=== PATIENT | male | born 1955 | race Caucasian/White ===

== ENCOUNTER 2016-11-10 13:48 | Inpatient (IN) | payer MEDICAID ==
[~2016-11-10] VITALS: Ht 182.9 cm; Wt 62.2 kg
[2016-11-10] VITALS (374 sets, daily range): BP systolic 156–175; BP diastolic 96–111; PULSE 85–101; TEMP 98.4–98.8; O2SAT 71–100
[~2016-11-10 13:48] MED LIST: AMBIEN 10MG10 MG PO; GABAPENTIN300 M1 PO; LAMICTAL 25MG T25 MG PO; LIORESAL20 MG PO; LORTAB 10/500 51 TAB PO; NO HOME MEDICATIONS; PRILOSEC10 MG PO; VALIUM5 MG PO; VICODIN PO; XANAX .25M0.25 MG/TA PO; ZANAFLEX2 M1 PO
[2016-11-10 14:28] LABS: BASO % 0.3 % (0.0-2.0); EOS # 0.1 (0.0-0.7); EOS % 0.5 % (0-4.0); GRAN # 4.3 (1.4-6.5); GRAN % 45.9 % (42.2-75.2); HEMATOCRIT 37.1 % (42.0-52.0); HEMOGLOBIN 13.4 g/dl (13.5-18.0); LYMPH # 3.6 (1.2-3.4); LYMPH % 37.8 % (20.0-51.0); MEAN CELL VOLUME 95 fl (80.0-100.0); MEAN CORPUSCULAR HEMOGLOBIN 34 pg (27.0-31.0); MEAN CORPUSCULAR HGB CONC 36 g/dl (33.0-37.0); MEAN PLATELET VOLUME 10.2 fl (7.4-10.4); MONO # 1.5 (0.1-0.6); MONO % 15.3 % (1.7-9.3); PLATELET COUNT 187 K/mm3 (130-400); RED BLOOD COUNT 3.91 M/mm3 (4.20-5.60); REDCELL DISTRIBUTION WIDTH-CV 11.9 % (11.5-14.5); WHITE BLOOD COUNT 9.5 K/mm3 (4.8-10.8)
[2016-11-10 14:32] LABS: INR 1.1 (0.8-3.0); PROTHROMBIN TIME 11.8 SECONDS (9.7-12.8)
[2016-11-10 14:35] LABS: PH 5 (5-8); SQUAMOUS EPITHELIAL None Seen /hpf; URINE APPEARANCE Clear; URINE BACTERIA None Seen /hpf; URINE BILIRUBIN Negative (NEGATIVE); URINE BLOOD Negative (NEGATIVE); URINE COLOR Yellow; URINE GLUCOSE Negative (NEGATIVE); URINE KETONE Trace (NEGATIVE); URINE RBC 0-2 /hpf; URINE UROBILINOGEN Negative (NEGATIVE); URINE WBC 0-2 /hpf
[2016-11-10 14:58] LABS: ADJUSTED CALCIUM 9.2 mg/dL (8.4-10.2); ALANINE AMINOTRANSFERASE 89 U/L (21-72); ALBUMIN 4.1 gm/dL (3.5-5.0); ALKALINE PHOSPHATASE 99 U/L (50-136); ANION GAP 10 mmol/L (7-16); BILIRUBIN,TOTAL 2.3 mg/dL (0.0-1.0); BLOOD UREA NITROGEN 11 mg/dL (9-20); CALCIUM 9.3 mg/dL (8.4-10.2); CARBON DIOXIDE 25 mmol/L (22-30); CHLORIDE 96 mmol/L (98-107); CREATININE, serum 0.79 mg/dL (0.66-1.25); GLUCOSE 85 mg/dL (74-106); SODIUM 131 mmol/L (137-145); TOTAL PROTEIN 7.9 gm/dL (6.4-8.2)
[2016-11-10 15:04] LABS: ACETAMINOPHEN < 10 ug/mL (10-30); AMPHETAMINE URINE NEGATIVE; BARBITURATES URINE NEGATIVE; BENZODIAZEPINES URINE POSITIVE; BUPRENORPHINE URINE NEGATIVE; METHADONE URINE NEGATIVE; OPIATES URINE POSITIVE; OXYCODONE URINE NEGATIVE; PHENCYCLIDINE URINE NEGATIVE; PROPOXYPHENE URINE NEGATIVE; SALICYLATE < 1.0 mg/dL; THC CANNABINOIDS URINE NEGATIVE
[2016-11-10 15:10] LABS: ARTERIAL BLD GAS O2 SATURATION 95.6 % (92-100); ARTERIAL BLD GAS TCO2 CT 24.1; ARTERIAL BLOOD GAS BASE EXCESS -2.1 (-2-2); ARTERIAL BLOOD GAS HCO3 22.9 meq/L (22-26); ARTERIAL BLOOD GAS PHT 7.37 C (7.35-7.45); ARTERIAL BLOOD GAS PO2 81.6 mmHg (80-100); ARTERIAL BLOOD GAS PO2T 81.6 (80-100); ARTERIAL BLOOD GAS pH 7.37 (7.35-7.45)
[2016-11-10 15:11] LABS: ATS? YES
[2016-11-10 15:41] LABS: INFLUENZA B NEGATIVE
[2016-11-10 15:52] LABS: PROLACTIN 36.5 ng/mL (3.7-17.9)
[2016-11-10 16:43] LABS: TROPONIN-I < 0.012 ng/mL (0.000-0.034)
[2016-11-10 16:53] LABS: MAGNESIUM 1.9 mg/dL (1.6-2.3); PHOSPHOROUS 4.2 mg/dL (2.5-4.5)
[2016-11-10 17:52] LABS: THYROID STIMULATING HORMONE 0.952 uIU/mL (0.465-4.680)
[2016-11-11] VITALS (1110 sets, daily range): BP systolic 143–178; BP diastolic 77–111; PULSE 78–101; TEMP 96.7–99.1; O2SAT 72–100
[2016-11-11 05:45] LABS: HEMATOCRIT 40.6 % (42.0-52.0); HEMOGLOBIN 14.3 g/dl (13.5-18.0); MEAN CELL VOLUME 97 fl (80.0-100.0); MEAN CORPUSCULAR HEMOGLOBIN 34 pg (27.0-31.0); MEAN CORPUSCULAR HGB CONC 35 g/dl (33.0-37.0); PLATELET COUNT 197 K/mm3 (130-400); RED BLOOD COUNT 4.17 M/mm3 (4.20-5.60); REDCELL DISTRIBUTION WIDTH-CV 12.1 % (11.5-14.5); WHITE BLOOD COUNT 9.6 K/mm3 (4.8-10.8)
[2016-11-11 05:56] LABS: ADJUSTED CALCIUM 8.6 mg/dL (8.4-10.2); BILIRUBIN,TOTAL 2.1 mg/dL (0.0-1.0); CALCIUM 8.6 mg/dL (8.4-10.2); CREATININE, serum 0.61 mg/dL (0.66-1.25); POTASSIUM 3.9 mmol/L (3.4-5.0); TOTAL PROTEIN 7.5 gm/dL (6.4-8.2)
[2016-11-11 14:16] LABS: THYROID STIMULATING HORMONE 0.722 uIU/mL (0.465-4.680)
[2016-11-11 14:43] LABS: THYROXINE (T4)-TOTAL 14.8 ug/dL (5.5-11.0)
[2016-11-12] VITALS (62 sets, daily range): BP systolic 126–199; BP diastolic 57–96; PULSE 78–96; TEMP 97.6–98.8; O2SAT 96–99
[2016-11-12 05:29] LABS: HEMOGLOBIN 12.9 g/dl (13.5-18.0); MEAN CELL VOLUME 96 fl (80.0-100.0); MEAN CORPUSCULAR HEMOGLOBIN 34 pg (27.0-31.0); MEAN CORPUSCULAR HGB CONC 36 g/dl (33.0-37.0); MEAN PLATELET VOLUME 9.8 fl (7.4-10.4); PLATELET COUNT 176 K/mm3 (130-400); RED BLOOD COUNT 3.77 M/mm3 (4.20-5.60); WHITE BLOOD COUNT 9.5 K/mm3 (4.8-10.8)
[2016-11-12 05:40] LABS: CALCIUM 8.4 mg/dL (8.4-10.2); CREATININE, serum 0.55 mg/dL (0.66-1.25); MAGNESIUM 1.8 mg/dL (1.6-2.3); PHOSPHOROUS 2.7 mg/dL (2.5-4.5); POTASSIUM 3.8 mmol/L (3.4-5.0)
[2016-11-12 06:32] LABS: HEMATOCRIT 36.1 % (42.0-52.0)
[2016-11-13] VITALS (9 sets, daily range): BP systolic 109–157; BP diastolic 62–84; PULSE 80–93; TEMP 97.5–99.4
[2016-11-13 08:26] LABS: HEMATOCRIT 36.6 % (42.0-52.0); HEMOGLOBIN 13.6 g/dl (13.5-18.0); MEAN CELL VOLUME 93 fl (80.0-100.0); MEAN CORPUSCULAR HEMOGLOBIN 34 pg (27.0-31.0); MEAN CORPUSCULAR HGB CONC 37 g/dl (33.0-37.0); MEAN PLATELET VOLUME 9.9 fl (7.4-10.4); PLATELET COUNT 176 K/mm3 (130-400); RED BLOOD COUNT 3.95 M/mm3 (4.20-5.60); REDCELL DISTRIBUTION WIDTH-CV 11.5 % (11.5-14.5); WHITE BLOOD COUNT 8.9 K/mm3 (4.8-10.8)
[2016-11-13 08:44] LABS: CALCIUM 8.8 mg/dL (8.4-10.2); CREATININE, serum 0.54 mg/dL (0.66-1.25); POTASSIUM 3.5 mmol/L (3.4-5.0)
[2016-11-13 13:08] LABS: CALCIUM 8.9 mg/dL (8.4-10.2); CREATININE, serum 0.66 mg/dL (0.66-1.25); POTASSIUM 3.2 mmol/L (3.4-5.0)
[2016-11-13 13:08] LABS: PH 6 (5-8); SQUAMOUS EPITHELIAL None Seen /hpf; URINE APPEARANCE Hazy; URINE BACTERIA Rare /hpf; URINE BILIRUBIN Negative (NEGATIVE); URINE BLOOD 3+ (NEGATIVE); URINE COLOR Amber; URINE GLUCOSE Negative (NEGATIVE); URINE KETONE 1+ (NEGATIVE); URINE RBC >50 /hpf; URINE UROBILINOGEN >=4.0 mg/dL (NEGATIVE)
[2016-11-14 00:25] VITALS: BP 108/60; PULSE 90; TEMP 98.1
[2016-11-14 01:52] VITALS: BP 101/61; PULSE 91; TEMP 97
[2016-11-14 03:41] VITALS: BP 114/80; PULSE 91; TEMP 99.3
[2016-11-14 06:34] VITALS: BP 132/85; PULSE 81; TEMP 99.3
[2016-11-14 07:02] LABS: HEMOGLOBIN 12.7 g/dl (13.5-18.0); MEAN CELL VOLUME 95 fl (80.0-100.0); MEAN CORPUSCULAR HEMOGLOBIN 34 pg (27.0-31.0); MEAN CORPUSCULAR HGB CONC 36 g/dl (33.0-37.0); MEAN PLATELET VOLUME 10.6 fl (7.4-10.4); PLATELET COUNT 180 K/mm3 (130-400); REDCELL DISTRIBUTION WIDTH-CV 11.8 % (11.5-14.5)
[2016-11-14 07:23] LABS: ADD PATHOLOGY DIFF REVIEW NO; CALCIUM 8.8 mg/dL (8.4-10.2); CREATININE, serum 0.59 mg/dL (0.66-1.25); HEMATOCRIT 35.1 % (42.0-52.0); POTASSIUM 4.2 mmol/L (3.4-5.0)
[2016-11-14 07:39] LABS: BAND 5 % (0-10); BASOPHIL 1 % (0-2); METAMYELOCYTE 1 % (0-0); NEUTROPHILS 48 % (42.0-75.2); PLATELET ESTIMATE NORMAL (NORMAL); TOTAL CELLS COUNTED 100
[2016-11-14 08:05] VITALS: BP 136/73; PULSE 85; TEMP 99
[2016-11-14] MEDS ORDERED: LIBRIUM 10M10 MG/CAP PO (09:14)
[2016-11-14 10:00] VITALS: BP 125/65; PULSE 88; TEMP 98.6
[2016-11-14] MEDS ORDERED: FOLIC ACID 11 MG/TA1 PO (10:19)
[2016-11-14] MEDS ORDERED: THIAMINE 1100 MG/TAB PO (10:20)
[2016-11-14] MEDS ORDERED: LIBRIUM 5MG5 MG/CAP PO (10:27)
[2016-11-15 12:08] LABS: .COPPER,S 0.98 mcg/mL (())
[2016-11-17 14:54] LABS: VITAMIN E 8.9 mg/L (())
== END 2016-11-14 12:11 | disposition home or self-care (01) | DRG 897 ==
LOC: COL.ER 13:48 → ICU 15:55 → MEDICAL 15:55 → ICU 11-12 09:49 → MEDICAL 11-12 12:54
PROVIDERS: Emergency Medicine; Internal Medicine; Physician Assistant; Psychiatry & Neurology Neurology
DX: F10.232 Alcohol dependence with withdrawal with perceptual disturbance (principal); E87.1 Hypo-osmolality and hyponatremia; I10 Essential (primary) hypertension; F17.210 Nicotine dependence, cigarettes, uncomplicated; F10.20 Alcohol dependence, uncomplicated; Y90.0 Blood alcohol level of less than 20 mg/100 ml
CPT/HCPCS: 90791-AI; 99223-AI; 99232-AI; 99233-AI; 99239; J1630; J1650; J2060; J3411; J7030

== ENCOUNTER 2017-10-02 09:41 | Emergency (ER) | payer MEDICAID ==
[~2017-10-02] VITALS: Ht 172.7 cm; Wt 55.0 kg
[~2017-10-02 09:41] MED LIST changes: +FOLIC ACID 11 MG/TA1 PO; +LIBRIUM 10M10 MG/CAP PO; +LIBRIUM 5MG5 MG/CAP PO; +THIAMINE 1100 MG/TAB PO
[2017-10-02 09:45] VITALS: BP 150/91; PULSE 82; TEMP 97.2
== END 2017-10-02 10:40 | disposition home or self-care (01) ==
LOC: COL.ER 09:41
DX: G89.29 Other chronic pain (principal); M54.5 Low back pain; Z86.19 Personal history of other infectious and parasitic diseases; Z87.891 Personal history of nicotine dependence

== ENCOUNTER → 2019-05-02 | Outpatient (REF) | LOC: ZLAB.WCH 22:31 | DX: Z01.89 Encounter for other specified special examinations (principal) ==

== ENCOUNTER 2019-10-06 13:53 | Inpatient (IN) | payer MEDICAID ==
[2019-10-06] VITALS (186 sets, daily range): BP systolic 109–146; BP diastolic 62–113; PULSE 57–601; TEMP 98–98.2; O2SAT 88–97
[~2019-10-06] VITALS: Ht 172.7 cm; Wt 66.1 kg
[2019-10-06 14:21] LABS: BASO # 0.1 (0.0-0.2); BASO % 0.7 % (0.0-2.0); EOS # 0.2 (0.0-0.7); EOS % 1.2 % (0-4.0); GRAN % 65.3 % (42.2-75.2); HEMATOCRIT 46.1 % (42.0-52.0); HEMOGLOBIN 15.3 g/dl (13.5-18.0); LYMPH # 2.9 (1.2-3.4); LYMPH % 23.2 % (20.0-51.0); MEAN CELL VOLUME 92 fl (80.0-100.0); MEAN CORPUSCULAR HEMOGLOBIN 31 pg (27.0-31.0); MEAN CORPUSCULAR HGB CONC 33 g/dl (33.0-37.0); MEAN PLATELET VOLUME 9.5 fl (7.4-10.4); MONO # 1.1 (0.1-0.6); MONO % 9.2 % (1.7-9.3); PLATELET COUNT 257 K/mm3 (130-400); RED BLOOD COUNT 4.99 M/mm3 (4.20-5.60); REDCELL DISTRIBUTION WIDTH-CV 13.5 % (11.5-14.5)
[2019-10-06 14:27] LABS: PROTHROMBIN TIME 11.4 SECONDS (9.7-12.8)
[2019-10-06 14:29] LABS: PARTIAL THROMBOPLASTIN TIME 39.8 SECONDS (26.0-37.0)
[2019-10-06 14:30] LABS: ALANINE AMINOTRANSFERASE 18 U/L (21-72); ALKALINE PHOSPHATASE 103 U/L (50-136); ANION GAP 11 mmol/L (7-16); AST,SGOT 28 U/L (15-37); BILIRUBIN,TOTAL 0.6 mg/dL (0.0-1.0); BLOOD UREA NITROGEN 9 mg/dL (9-20); CALCIUM 9.6 mg/dL (8.4-10.2); CARBON DIOXIDE 28 mmol/L (22-30); CHLORIDE 99 mmol/L (98-107); CREATININE, serum 0.88 (0.66-1.25); GLUCOSE 83 mg/dL (74-106); LIPASE 173 U/L (23-300); POTASSIUM 3.7 mmol/L (3.4-5.0); SODIUM 137 mmol/L (137-145); TOTAL PROTEIN 8.7 gm/dL (6.4-8.2)
[2019-10-06 14:53] LABS: TROPONIN-I < 0.012 ng/mL (0.000-0.035)
[2019-10-06] MEDS ORDERED: ZYRTEC 10MG10 MG PO (15:03)
[2019-10-06] MEDS ORDERED: NEURONTIN100 MG/CAP PO (15:03)
[2019-10-06] MEDS ORDERED: LIPITOR 40MG TA40 MG PO (15:04)
[2019-10-06] MEDS ORDERED: TOPROL XL 25MG25 MG PO (15:04)
[2019-10-06] MEDS ORDERED: NEURONTIN300 MG/CAP PO (15:04)
[2019-10-06] MEDS ORDERED: BUSPAR5 MG PO (15:05)
[2019-10-06] MEDS ORDERED: ATARAX50 MG PO (15:05)
[2019-10-06] MEDS ORDERED: ADVIL200 MG PO (15:06)
[2019-10-06] MEDS ORDERED: ASPIRIN 81M81 MG/TA2 PO (15:06)
[2019-10-06] MEDS ORDERED: PLAVIX 75MG TAB75 MG PO (15:06)
[2019-10-06] MEDS ORDERED: NICODERM C21 MG/PATC TD (15:07)
--- NOTE | 2019-10-06 17:30 | NUR ---
PT ADMITTED FROM ED WITH CP AND HTN. PT IS AXOX4. PT TRANSFERED TO BED FROM [facility]. PT PLACED ON ICU MONITORS. PT IS SR ON TELE. PT IS ON RA. PT IS ON NITRO DRIP AT 20MCG/MIN. MAXWELL VILLALOBOS BEDSIDE. PT INSTRUCTED TO CALL WITH ALL NEEDS AND NOT TO GET UP ALONE. WILL CONTINUE TO MONITOR.
[2019-10-06 18:08] LABS: MAGNESIUM 1.9 mg/dL (1.6-2.3)
[2019-10-06 18:21] LABS: TROPONIN-I 3 HR POST INITIAL < 0.012 ng/mL (0.000-0.034)
--- NOTE | 2019-10-06 19:30 | NUR ---
Bedside report received from VERO Jessica. Patient pleasant and coopertive, all lines reviewed and care assumed at this time. Patient assisted with urinal at this time as well. Staff assist was minimal to none, patient requests assistance with monitoring equipment, not the urinal.
[2019-10-06 19:33] LABS: COLLECTION METHOD CATHETER
[2019-10-06 19:42] LABS: MUCOUS Present /lpf; PH 6 (5-8); SQUAMOUS EPITHELIAL None Seen /hpf; URINE APPEARANCE Clear; URINE BACTERIA None Seen /hpf; URINE BILIRUBIN Negative (NEGATIVE); URINE BLOOD 1+ (NEGATIVE); URINE COLOR Straw; URINE GLUCOSE Negative (NEGATIVE); URINE KETONE Negative (NEGATIVE); URINE LEUKOCYTE ESTERASE Negative (NEGATIVE); URINE NITRATE Negative (NEGATIVE); URINE PROTEIN(semi-quant) Negative (NEGATIVE); URINE RBC 0-2 /hpf; URINE UROBILINOGEN Negative (NEGATIVE)
--- NOTE | 2019-10-06 22:18 | NUR ---
Patient resting in bed, on left side. Patient states that his chest tightness is gone and his back pain is tolerable. Denies any other discomfort at this time, Nitro still infusing via peripheral site well. Uses call light appropriatly for urinal and other assistance.
[2019-10-07] VITALS (590 sets, daily range): BP systolic 101–175; BP diastolic 63–101; PULSE 57–101; TEMP 97.9–98.6; O2SAT 85–100
--- NOTE | 2019-10-07 01:23 | NUR ---
Patient resting in bed. Uses call light appropriately for assistance with urinal. Still denies chest pain or tightness and states back pain/sciatica is tolerable and he feels relaxed and is able to sleep.
[2019-10-07 06:35] LABS: BASO # 0.1 (0.0-0.2); BASO % 0.6 % (0.0-2.0); EOS # 0.2 (0.0-0.7); EOS % 2.5 % (0-4.0); GRAN # 4.7 (1.4-6.5); GRAN % 53.5 % (42.2-75.2); HEMATOCRIT 40.8 % (42.0-52.0); HEMOGLOBIN 13.9 g/dl (13.5-18.0); LYMPH # 2.7 (1.2-3.4); LYMPH % 31.2 % (20.0-51.0); MEAN CELL VOLUME 90 fl (80.0-100.0); MEAN CORPUSCULAR HEMOGLOBIN 31 pg (27.0-31.0); MEAN CORPUSCULAR HGB CONC 34 g/dl (33.0-37.0); MEAN PLATELET VOLUME 9.3 fl (7.4-10.4); MONO % 11.9 % (1.7-9.3); PLATELET COUNT 238 K/mm3 (130-400); RED BLOOD COUNT 4.55 M/mm3 (4.20-5.60); REDCELL DISTRIBUTION WIDTH-CV 13.4 % (11.5-14.5)
[2019-10-07 06:52] LABS: ANION GAP 8 mmol/L (7-16); BLOOD UREA NITROGEN 8 mg/dL (9-20); CALCIUM 9.2 mg/dL (8.4-10.2); CARBON DIOXIDE 27 mmol/L (22-30); CHLORIDE 101 mmol/L (98-107); CHOLESTEROL 156 mg/dL (120-200); CHOLESTEROL RISK RATIO 3.9; CREATININE, serum 0.75 (0.66-1.25); GLUCOSE 85 mg/dL (74-106); HDL CHOLESTEROL 40 mg/dL; LDL CHOLESTEROL 92 mg/dL; POTASSIUM 4.1 mmol/L (3.4-5.0); SODIUM 136 mmol/L (137-145); TRIGLYCERIDE 118 mg/dL
[2019-10-07 07:13] LABS: TROPONIN-I < 0.012 ng/mL (0.000-0.035)
--- NOTE | 2019-10-07 10:30 | NUR ---
NITRO DRIP STOPPED BY CARDIOLOGY FOR STRESS TEST THIS AFTERNOON.
--- NOTE | 2019-10-07 10:43 | NUR ---
TUGBOAT MATE student met with the patient to discuss a discharge plan. The patient lives in [place] with his 93-year old mother. The patient does not use DME and reports independence with ADLs. The patient's PCP is GRISELDA Gilbert but the patient is in the process of finding a physician and patient receives medications from [facility] with no difficulties. The patient has [facility] for nursing services for medication management and vitals, 1x weekly on Mondays or Tuesdays. The patient does not have advanced directives in the EMR but was interested in a DPOA-HC form. Form provided. The patient plans to return home upon discharge and will drive himself home. animal services officer will continue to follow to ensure a safe discharge.
--- NOTE | 2019-10-07 11:36 | NUR ---
CALLED ECHO TO VERIFY ORDER FOR ECHO TODAY. STATE THEY WILL COME.
--- NOTE | 2019-10-07 12:25 | NUR ---
PT DOWN TO NUC MED FOR STRESS TEST.
[2019-10-07] MEDS ORDERED: ZESTRIL 10MG10 MG PO (17:11)
[2019-10-07] MEDS ORDERED: NORCO 325 MG-51 TAB PO (17:12)
--- NOTE | 2019-10-07 18:01 | NUR ---
IV AND TELE DC'D. DISCHARGE INSTRUCTIONS DISCUSSED WITH PT. ALL QUESITONS ANSWERED. PT'S PHARMACY [facility] CALLED TO CLARIFY LISINOPRIL PRESCIPTION. CYN NEWTON HAD CALLED IN 40MG DAILY AND HAD PRESCRIBED 10MG DAILY. CALLED AND CLARIFIED WITH AND HE STATES CONTINUE ON 40MG. NOTIFIED [facility] AND CLARIFIED WITH PT. UPDATED MED LIST. PT WHEELED OUT FOR DISCHARGE. PT HAS ALL PAPERWORK AND SCRIPT.
== END 2019-10-07 18:00 | disposition home or self-care (01) | DRG 305 ==
LOC: COL.ER 13:53 → ICU 15:42
PROVIDERS: Emergency Medicine; Physician Assistant; ADMIT Hospitalist
DX: I16.9 Hypertensive crisis, unspecified (principal); I24.9 Acute ischemic heart disease, unspecified; E78.5 Hyperlipidemia, unspecified; G89.29 Other chronic pain; M54.9 Dorsalgia, unspecified; D72.829 Elevated white blood cell count, unspecified; J06.9 Acute upper respiratory infection, unspecified; F41.9 Anxiety disorder, unspecified; K21.9 Gastro-esophageal reflux disease without esophagitis; F17.200 Nicotine dependence, unspecified, uncomplicated; Z95.1 Presence of aortocoronary bypass graft; I25.2 Old myocardial infarction
CPT/HCPCS: 99222-AI; 99239; A9500; J1650; J2405; J2785; Q9967

== ENCOUNTER → 2020-09-28 | Outpatient (CLI) | payer MEDICAID ==
[~2020-09-28] MED LIST changes: +ADVIL200 MG PO; +ASPIRIN 81M81 MG/TA2 PO; +ATARAX50 MG PO; +BUSPAR5 MG PO; +LIPITOR 40MG TA40 MG PO; +NEURONTIN100 MG/CAP PO; +NEURONTIN300 MG/CAP PO; +NICODERM C21 MG/PATC TD; +NORCO 325 MG-51 TAB PO; +PLAVIX 75MG TAB75 MG PO; +TOPROL XL 25MG25 MG PO; +ZESTRIL 10MG10 MG PO; +ZYRTEC 10MG10 MG PO
== END ==
LOC: MHCPAIN 12:26
DX: M47.817 Spondylosis without myelopathy or radiculopathy, lumbosacral region (principal); M54.5 Low back pain; M96.1 Postlaminectomy syndrome, not elsewhere classified; F17.210 Nicotine dependence, cigarettes, uncomplicated; G89.29 Other chronic pain
CPT/HCPCS: G0463

== ENCOUNTER → 2021-01-26 | Outpatient (CLI) | payer MEDICAID, MEDICARE | LOC: MHCPAIN 12:30 | DX: M47.817 Spondylosis without myelopathy or radiculopathy, lumbosacral region (principal); M96.1 Postlaminectomy syndrome, not elsewhere classified; M54.5 Low back pain; M53.3 Sacrococcygeal disorders, not elsewhere classified; G89.29 Other chronic pain | CPT/HCPCS: G0463 ==

== ENCOUNTER 2022-07-05 07:40 | Day surgery (SDC) | payer MEDICARE, MEDICAID ==
[~2022-07-05] VITALS: Ht 172.7 cm; Wt 70.6 kg
--- NOTE | 2022-07-05 08:23 | NUR ---
Patient's blood pressure reading is 192/100. Rechecked and is 205/103. He denies any symptoms of hypertension. He does not take any home BP medications. This is reported to Gus Sanches CRNA. Orders received to IV labetolol 10 mg.
[2022-07-05 08:25] VITALS: BP 192/100; PULSE 84; TEMP 97.6
[2022-07-05] MEDS ORDERED: [UNRECOGNIZED DRUG - OTHER] (08:35)
--- NOTE | 2022-07-05 08:40 | NUR ---
IV labetolol is given as ordered. He is on continuous pulse ox monitoring. HR is 74 prior to administration. Anesthesia is notified of fentanyl patch on abdomen and dentures. The patient has a dry mouth medication in his mouth and spits this out, anesthesia aware.
[2022-07-05] MEDS ORDERED: FOSAMAX 70MG TA70 MG PO (08:50)
[2022-07-05] MEDS ORDERED: PROSCAR 5MG5 MG PO (08:50)
[2022-07-05] MEDS ORDERED: LYRICA 75MG CAP75 MG PO (08:51)
[2022-07-05] MEDS ORDERED: FENTANYL 50MCG TD (08:51)
[2022-07-05] MEDS ORDERED: PROBIOTIC-MAJOR PO (08:51)
[2022-07-05] MEDS ORDERED: RT SPIRIVA18 MCG IH (08:52)
--- NOTE | 2022-07-05 09:04 | NUR ---
BP is rechecked and reads 176/95, HR 70. Patient ambulates to the restroom, voids, and returns to room.
[2022-07-05 11:15] VITALS: BP 151/89; PULSE 80; TEMP 97.7
--- NOTE | 2022-07-05 11:21 | NUR ---
1115 - PT arrives from procedure, drowsy but oriented. PT ambulated from cart to chair 1:1 for standby assist. Monitors applied and vitals obtained. Warm blankets provided and non-slip socks remain on. PT provided snack and drink; denies pain/nausea. PT is using call crystal for TV controls. Verbal room report obtained. 1120 - DR is speaking w/ PT. Call crystal remains within reach.
[2022-07-05 11:30] VITALS: BP 173/122; PULSE 88
[2022-07-05 11:45] VITALS: BP 173/92; PULSE 72
--- NOTE | 2022-07-05 12:14 | NUR ---
1130 - Vitals obtained. PT has finished snack and drink; denies pain/nausea and expressed desire to be discharged. Call crystal remains in use for TV controls 1145 - Vitals obtained prior to PT ambulating to bathroom, voids then back to his room. IV discontinued. Catheter tip intact and pressure bandage applied; NO redness or swelling noted. DC instructions and educational material reviewed w/ PT who verbalized understanding and signed the related paperwork. Questions answered to PT satisfaction. PT changed into his personal clothes w/ RN in the room, refused assistance. Then discharged to the PT entrence via wheelchair; PT has DC packet and personal belongings and was transferred into the care of Oswald, who is driving private car.
== END 2022-07-05 12:20 | disposition home or self-care (01) ==
LOC: SDCO 07:40
DX: D12.5 Benign neoplasm of sigmoid colon (principal); K52.832 Lymphocytic colitis; K57.30 Diverticulosis of large intestine without perforation or abscess without bleeding; F17.210 Nicotine dependence, cigarettes, uncomplicated; I10 Essential (primary) hypertension; K21.9 Gastro-esophageal reflux disease without esophagitis
CPT/HCPCS: J2704; J7030

== ENCOUNTER 2023-08-05 17:05 | Inpatient (IN) | payer MEDICARE, MEDICAID ==
[~2023-08-05] VITALS: Ht 167.6 cm; Wt 72.7 kg
[~2023-08-05 17:05] MED LIST changes: +FENTANYL 50MCG TD; +FOSAMAX 70MG TA70 MG PO; +LYRICA 75MG CAP75 MG PO; +PRILOSEC 20MG20 MG PO; +PROBIOTIC-MAJOR PO; +PROSCAR 5MG5 MG PO; +RT SPIRIVA18 MCG IH; +[UNRECOGNIZED DRUG - OTHER]
[2023-08-05 17:51] LABS: BASO # 0.1 K/mm3 (0.0-0.2); BASO % 0.5 % (0.0-2.0); EOS % 0.2 % (0.0-4.0); GRAN % 83.9 % (42.2-75.2); HEMATOCRIT 43.9 % (42.0-52.0); HEMOGLOBIN 15.4 g/dl (13.5-18.0); LYMPH # 1.2 K/mm3 (1.2-3.4); LYMPH % 7.1 % (20.0-51.0); MEAN CELL VOLUME 91 fl (80.0-100.0); MEAN CORPUSCULAR HEMOGLOBIN 32 pg (27-31); MEAN CORPUSCULAR HGB CONC 35 g/dl (33.0-37.0); MEAN PLATELET VOLUME 8.8 fl (7.4-10.4); MONO # 1.2 K/mm3 (0.1-0.6); MONO % 7.4 % (1.7-9.3); PLATELET COUNT 281 K/mm3 (130-400); RED BLOOD COUNT 4.85 M/mm3 (4.20-5.60); REDCELL DISTRIBUTION WIDTH-CV 13.8 % (11.5-14.5)
[2023-08-05 17:51] LABS: INR 1.1 (0.8-3.0); PROTHROMBIN TIME 12.2 SECONDS (9.7-12.8)
[2023-08-05 18:05] LABS: ALBUMIN 3.8 gm/dL (3.4-4.8); BILIRUBIN,TOTAL 1.5 mg/dL (0.2-1.2); CALCIUM 9.4 mg/dL (8.4-10.2); CREATININE, serum 1.83 mg/dL (0.72-1.25); POTASSIUM 4.2 mmol/L (3.5-4.5); TOTAL PROTEIN 7.2 gm/dL (6.2-8.1)
[2023-08-05 22:50] VITALS: BP 177/70; PULSE 86; TEMP 97.1
[2023-08-05 22:57] LABS: COLLECTION METHOD CATHETER
[2023-08-05 23:05] VITALS: BP 178/70; PULSE 89
[2023-08-05 23:07] LABS: PH 5.5 (5.0-8.5); URINE APPEARANCE Clear (CLEAR/HAZY); URINE COLOR Yellow (YELLOW); URINE GLUCOSE Negative (NEGATIVE); URINE KETONE TRACE (NEGATIVE); URINE NITRATE Negative (NEGATIVE); URINE PROTEIN(semi-quant) 1+ (NEGATIVE); URINE UROBILINOGEN 0.2 E.U/dL (0.2-1.0)
[2023-08-05 23:08] LABS: URINE BLOOD TRACE-INTACT (NEGATIVE)
[2023-08-05 23:20] VITALS: BP 169/83; PULSE 86
[2023-08-05 23:25] LABS: URINE RBC 0-2 /hpf (0-2)
[2023-08-05 23:35] VITALS: BP 176/81; PULSE 85
[2023-08-06] VITALS (17 sets, daily range): BP systolic 144–194; BP diastolic 67–94; PULSE 77–90; TEMP 97.8–98.6
--- NOTE | 2023-08-06 05:46 | NUR ---
PT admitted to room 324 from PACU for repair of fx left tib/fib and I&D of wound from open fracture. IVF infusing into RH piv, INT present in LFA. CMS intact to left foot. ice pack placed and foot elevated on pillow. [place] 5 given prior to leaving PACU, pt reports pain is still severe, 2nd norco given @ 2315, along with IV dilaudid 0.25 mg. started on clears. pt on 2L O2 per NC. corey catheter patent/secure draining clear yellow urine. pt is not able to assist with admission intake and med rec at this time d/t pain, he would like to wait.
--- NOTE | 2023-08-06 06:02 | NUR ---
pain control better this am but pt having some disorientation, yells out at times instead of using call light, bed alarm on, pt close to desk. tolerating clears w/o N/V, can have regular breakfast.
[2023-08-06 06:31] LABS: CALCIUM 7.9 mg/dL (8.4-10.2); CREATININE, serum 1.05 mg/dL (0.72-1.25); POTASSIUM 4.4 mmol/L (3.5-4.5)
[2023-08-06 06:33] LABS: MEAN CELL VOLUME 92 fl (80.0-100.0); MEAN CORPUSCULAR HGB CONC 35 g/dl (33.0-37.0); MEAN PLATELET VOLUME 9.4 fl (7.4-10.4); PLATELET COUNT 202 K/mm3 (130-400); RED BLOOD COUNT 3.77 M/mm3 (4.20-5.60); REDCELL DISTRIBUTION WIDTH-CV 13.9 % (11.5-14.5)
[2023-08-06 06:37] LABS: HEMATOCRIT 34.6 % (42.0-52.0); HEMOGLOBIN 12.2 g/dl (13.5-18.0); MEAN CORPUSCULAR HEMOGLOBIN 32 pg (27-31)
--- NOTE | 2023-08-06 07:09 | NUR ---
Shift report received from the night nurseChayo RN.
[2023-08-06 07:16] LABS: BAND 16 % (0-10); LYMPHOCYTE 2 % (20.0-51.0); NEUTROPHILS 79 % (42.0-75.2)
[2023-08-06 07:17] LABS: PLATELET ESTIMATE NORMAL (NORMAL)
--- NOTE | 2023-08-06 08:15 | NUR ---
Patient laying in bed moaning in pain upon entering room. Patient c/o severe pain at left lower extremity and describes pain as throbbing. Patient able to wiggle toes on LLE and does have sensation at toes. Cap refill brisk, ice pack applied to the affected area. IVF infusing without difficulty. Adam draining mick urine in bag. Dilaudid administered for pain level of 10/10.
[2023-08-06] MEDS ORDERED: BUSPAR10 MG PO (08:34)
[2023-08-06] MEDS ORDERED: FOLIC ACID0.4 MG PO (08:38)
[2023-08-06] MEDS ORDERED: LOPRESSOR 225 MG/TAB PO (08:40)
[2023-08-06] MEDS ORDERED: B-121000 MCG PO (08:40)
[2023-08-06] MEDS ORDERED: DESYREL 50MG50 MG PO (08:41)
[2023-08-06] MEDS ORDERED: FLEXERIL5 MG PO (08:43)
[2023-08-06] MEDS ORDERED: CATAPRES 0.1MG0.1 MG PO (08:44)
[2023-08-06] MEDS ORDERED: PRINIVIL10 MG PO (08:44)
[2023-08-06] MEDS ORDERED: AMBIEN 5MG TABLE5 MG PO (08:45)
[2023-08-06] MEDS ORDERED: VENTOLIN0.09 MG IH (08:46)
[2023-08-06] MEDS ORDERED: VITAMIN E1000 U/CAP PO (08:49)
[2023-08-06] MEDS ORDERED: ZYRTEC 10MG10 MG PO (08:49)
[2023-08-06] MEDS ORDERED: FLONASE NASAL S16 GM NS (08:50)
[2023-08-06] MEDS ORDERED: PERCOCET 325 MG1 TA2 PO (08:50)
[2023-08-06] MEDS ORDERED: BENADRYL ALLERG25 M2 PO (08:51)
[2023-08-06] MEDS ORDERED: LIDODERM 5% PATC1 EA TP (08:51)
[2023-08-06] MEDS ORDERED: COLACE 100100 MG/CAP PO (08:52)
[2023-08-06] MEDS ORDERED: NITROSTAT0.4 MG/TAB SL (08:52)
--- NOTE | 2023-08-06 09:16 | NUR ---
Ornamental Iron Worker Helper met with Patient at bedside to conduct Care Managment Assessment and discuss dishcarge planning. Patient lives alone in [place], [place] and states to be established with PCP Dr. Hernandez. Patient states that his lscgdiy-et-ymn Oswald Lind P: [phone] is his best familial point of contact and possible DPOAHC but he isn't sure if he has completed DPOAHC forms. Patient is covered by [facility] and [facility] for insurance. Patient requests discharge medications be send to [facility] in [place], [place]. Patiend denies the use of DME prior to his admission and reports independency with ADL/IADLs prior to his fall. Patient states that he doesn't know how he fell stating , "i just fell". Discharge Plan: Pending PT/OT eval.
--- NOTE | 2023-08-06 09:30 | NUR ---
Respiratory therapist was called for Incentive spirometer for patient as ordered. Respiratory therapist brought incentive spirometer to bedside but patient states "he's taking a nap" and refused to have training on the use of incentive spirometer.
--- NOTE | 2023-08-06 09:42 | NUR ---
Patient c/o feeling nausea and in pain . Zofran administered for n/v and dilaudid for left leg pain.
--- NOTE | 2023-08-06 11:37 | NUR ---
DILAUDID ADMINISTERED FOR LEFT LEG PAIN. SEE E-MAR FOR DOCUMENTATION.
--- NOTE | 2023-08-06 11:37 | NUR ---
Tennis Camp Instructor contacted Patient's Nzqrjgo-eg-lka, Oswald to initiate familial contact and update on Patient's status. Oswald reports that Patient was recieving HH Nursing through [facility] prior to admission once/week on tuesdays for medication managment and vital review. ZAIN briefed that physician discussed post-acute rehab with Patient during rounding which Patient is supportive of. Oswald reports that he and his are expected to be at bedside tomorrow. oswald is supportive of rehab and recommends [facility] and [facility] as preference. SW agreed to discuss Oswald's prefrences with Patient this afternoon. when discussing goso-hetrn-ycifd options.
--- NOTE | 2023-08-06 14:12 | NUR ---
10mg of roxicodone administered for left leg pain of 9/10.
--- NOTE | 2023-08-06 16:37 | NUR ---
Dilaudid 0.5mg administered for left lower extremity pain. Patient rated painl level 10/10, See e-mar for documentation.
--- NOTE | 2023-08-06 17:01 | NUR ---
Wincher was contacted by [facility] who reports that they were notiefied by Patient's PCP that he may have the need for Swing Bed when discharged and are able to accept Patient. SW met with Patient and discussed [id number] options of SNF, Swing bed, and IPR facilities. Patient states that he would like to go to [facility]. SW briefed that this SW was contacted by [facility] who reports that they can assist with Patient's rehab need. Patient states that he would like to discharge to their [facility] and will review options on medicare.gov list proovided.
--- NOTE | 2023-08-06 20:00 | NUR ---
PT IN BED, COMPLAINS OF LLE PAIN AND BACK PAIN. MEDICATED WITH HS MEDS INCLUDING OXYCODONE 10MG PO. B/P ELEVATED 194/88, DOSE OF APRESOLINE 10MG IVP GIVEN. PT TAKING ORAL FLUIDS WELL, CAPPED IVF. HAS INT TO LFA AND RT HAND, BOTH FLUSH WELL. MEJIA TO BSD WITH YELLOW URINE. PT IS ALERT AND ORIENTED.
--- NOTE | 2023-08-06 21:47 | NUR ---
PT REPORTS PAIN, DILAUDID 0.5MG IVP GIVEN WITH ZOFRAN 4MG IVP FOR NAUSEA. PT REPORTS HE HAS CHRONIC BACK PAIN, WEARS FENTANYL PATCHES AT HOME.
--- NOTE | 2023-08-06 23:48 | NUR ---
NEW ORDER FOR EYE DROPS GIVEN BY CINDY SEXTON. MEDICATED WITH OXYCODONE 10MG PO NOW AND APRESOLINE 10MG IVP FOR B/P 174/91. REFRESH EYE DROPS ADMINISTERED TO BOTH EYES.
[2023-08-07] VITALS (15 sets, daily range): BP systolic 147–204; BP diastolic 69–90; PULSE 76–98; TEMP 98–98.4
--- NOTE | 2023-08-07 05:30 | NUR ---
MEDICATED WITH SCHEDULED PROTONIX AND PRN OXYCODONE 10MG PO NOW. DID EXPLAIN PRN PAIN MEDS, PT WAS UNAWARE HE HAD TO ASK FOR THEM, VERBALIZES UNDERSTANDING.
[2023-08-07 05:53] LABS: CALCIUM 8.5 mg/dL (8.4-10.2); CREATININE, serum 0.74 mg/dL (0.72-1.25); MAGNESIUM 1.9 mg/dL (1.6-2.6); POTASSIUM 4.4 mmol/L (3.5-4.5)
--- NOTE | 2023-08-07 08:20 | NUR ---
pt resting in bed, a&ox4. BP elevated this morning, PRN hydralazine given per emar. tele in place. meds given and assessment complete. fentanyl patch to left shoulder. nicotine patch to right arm. corey to dd w clear yellow urine output. scds to BLE. INT to right hand and left forearm. call light in reach. fall precautions in place. no needs at this time. call light in reach.
--- NOTE | 2023-08-07 09:15 | NUR ---
Initial visit; Patient declined Spiritual though thanked Draw Frame Tender for looking in on him. Patient appeared to be in pain and groaning prior to Draw Frame Tender opening the door and announcing herself. Draw Frame Tender suggested he call on his nurse if he is in pain.
--- NOTE | 2023-08-07 11:19 | NUR ---
corey discontinued without difficulty with 200ml clear yellow urine output.
--- NOTE | 2023-08-07 13:09 | NUR ---
Wet End Operator sent clinical updates to Leyla at [facility].
[2023-08-07] MEDS ORDERED: NYSTATIN OR100 MU/ML PO (19:33)
--- NOTE | 2023-08-07 20:34 | NUR ---
PT IN BED, READY FOR HS MEDS. HAS LLE ELEVATED ON PILLOWS WITH GOOD CSM, DRSG W/SPLINT INTACT. VOIDING PER URINAL YELLOW URINE. IS ALERT AND ORIENTED X4. HAS INT TO RT HAND AND LFA.
--- NOTE | 2023-08-07 21:52 | NUR ---
PT MEDICATED WITH OXYCODONE 10MG PO FOR LLE PAIN.
--- NOTE | 2023-08-07 23:37 | NUR ---
PT'S B/P 204/90 PER MANUAL CUFF, MEDICATED WITH APRESOLINE 10MG IVP NOW.
[2023-08-08] VITALS (14 sets, daily range): BP systolic 146–223; BP diastolic 80–107; PULSE 84–106; TEMP 97.9–98.4
--- NOTE | 2023-08-08 01:21 | NUR ---
B/P 160/80.
--- NOTE | 2023-08-08 01:55 | NUR ---
PT MEDICATED WITH SCHEDULED ES TYLENOL AND PRN OXYCODONE 10MG FOR LLE PAIN.
--- NOTE | 2023-08-08 06:04 | NUR ---
PT MEDICATED WITH SCHEDULED AM MED AND PRN OXYCODONE 1OMG PO NOW.
[2023-08-08 06:12] LABS: BASO % 0.1 % (0.0-2.0); EOS % 0.4 % (0.0-4.0); GRAN # 7.4 K/mm3 (1.4-6.5); GRAN % 76.3 % (42.2-75.2); HEMOGLOBIN 12.3 g/dl (13.5-18.0); LYMPH # 1.3 K/mm3 (1.2-3.4); LYMPH % 13.6 % (20.0-51.0); MEAN CELL VOLUME 92 fl (80.0-100.0); MEAN CORPUSCULAR HEMOGLOBIN 32 pg (27-31); MEAN CORPUSCULAR HGB CONC 35 g/dl (33.0-37.0); MEAN PLATELET VOLUME 9.2 fl (7.4-10.4); MONO # 0.9 K/mm3 (0.1-0.6); MONO % 9.1 % (1.7-9.3); PLATELET COUNT 234 K/mm3 (130-400); RED BLOOD COUNT 3.89 M/mm3 (4.20-5.60); REDCELL DISTRIBUTION WIDTH-CV 14.1 % (11.5-14.5)
[2023-08-08 06:16] LABS: HEMATOCRIT 35.6 % (42.0-52.0)
[2023-08-08 06:26] LABS: CALCIUM 9.3 mg/dL (8.4-10.2); CREATININE, serum 0.74 mg/dL (0.72-1.25)
--- NOTE | 2023-08-08 09:00 | NUR ---
pt resting in bed, a&ox4. vss and tele in place. pt reports pain is tolerable this morning. most of pts concerns are about his allergies and anxiety, will discuss with hospital team. fentanyl patch to left arm. nicotine patch reapplied to right arm. scds to ble. INT to left forearm and right hand flush well. fall precautions in place. LLE splint cdi. call light in reach.
--- NOTE | 2023-08-08 12:43 | NUR ---
Hospitality Internship attempted to contacte Patient's [id number], Oswald to update on acceptence from [facility] and discuss familyl transportation tomorrow, 08-09-23. SW left a voicemail requesting callback.
--- NOTE | 2023-08-08 22:43 | NUR ---
Patient assessed around 2014. Complained of level 8 pain to left leg. Given PRN Clyman for pain. Given PRN Ambien as requested for sleep, and refused Trazadone at that time, but did take later on to try and get some sleep. Has Fentanyl patch to left upper arm. Dressing to left leg is CDI. Given PRN Appresoline for HTN. Voices no questions, needs, or concerns at this time. In bed with call light within reach. High fall risk precautions in place. Bed alarm on.
[2023-08-09] VITALS (7 sets, daily range): BP systolic 133–186; BP diastolic 62–105; PULSE 83–114; TEMP 98.2–98.3
--- NOTE | 2023-08-09 05:58 | NUR ---
Patient has been receiving PRN Roxicodone about every 4 hours for pain. Voices no further questions, needs, or concerns at this time. In bed with call light within reach.
[2023-08-09 06:20] LABS: BASO % 0.4 % (0.0-2.0); EOS # 0.1 K/mm3 (0.0-0.7); EOS % 1.7 % (0.0-4.0); GRAN # 5.6 K/mm3 (1.4-6.5); GRAN % 67.4 % (42.2-75.2); HEMATOCRIT 40.8 % (42.0-52.0); LYMPH # 1.6 K/mm3 (1.2-3.4); MEAN CELL VOLUME 91 fl (80.0-100.0); MEAN CORPUSCULAR HEMOGLOBIN 32 pg (27-31); MEAN CORPUSCULAR HGB CONC 36 g/dl (33.0-37.0); MEAN PLATELET VOLUME 9.1 fl (7.4-10.4); MONO # 0.9 K/mm3 (0.1-0.6); MONO % 10.7 % (1.7-9.3); PLATELET COUNT 269 K/mm3 (130-400); RED BLOOD COUNT 4.51 M/mm3 (4.20-5.60); REDCELL DISTRIBUTION WIDTH-CV 13.9 % (11.5-14.5)
[2023-08-09 06:23] LABS: HEMOGLOBIN 14.5 g/dl (13.5-18.0)
[2023-08-09 06:28] LABS: CALCIUM 9.9 mg/dL (8.4-10.2); CREATININE, serum 0.74 mg/dL (0.72-1.25); POTASSIUM 3.6 mmol/L (3.5-4.5)
--- NOTE | 2023-08-09 06:46 | NUR ---
Patient called at approximately 0610, reporting chest pain. VS: 114 24 152/96 97% room air. Reports he has been having chest pain all night, but did not report any throughout the night to staff, including when asking about pain. Ordered EKG. Given PRN Nitro. Repeat BP 133/76. EKG with sinus tach, mod ST dep. Called to Dr. Steel and updated on patient. Ordered Troponin. Order placed and called lab to add on to morning labs already drawn. Patient complaining of SOB, SPO2 96% on room air, put on O2 for comfort, and patient took inhaler that was sitting at bedside. RT called and updated, as well as updated that patient self administered inhaler at bedside. Report given to day shift RN. Patient declining anymore Nitro at this time. Did take scheuled Protonix and PRN Roxicodone.
--- NOTE | 2023-08-09 08:00 | NUR ---
pt resting in bed, a&ox4. reports feeling better this morning and no longer has chest discomfort. pt on room air. vss and tele in place. meds given and assessment complete. LLE splint is cdi. pt rates pain a 3/10. nicotine patch to left arm. new fentanyl patch applied to right arm. fall precautions in place. INT to right hand and left forearm. call light in reach.
[2023-08-09] MEDS ORDERED: NICODERM C21 MG/PATC TD (08:58)
[2023-08-09] MEDS ORDERED: IBU400 MG PO (08:59)
[2023-08-09] MEDS ORDERED: LOPRESSOR 225 MG/TAB PO (08:59)
--- NOTE | 2023-08-09 10:30 | NUR ---
INT to right hand and left forearm discontinued. discharge instructions given to pt. all questions answered. pt escorted to personal vehicle with sister and brother in law to transport to [facility].
--- NOTE | 2023-08-09 11:06 | NUR ---
report called to nurse at [facility]. all questions answered. attempted call to pt and PATRICIA about leaving HH packet at the hospital. informed nurse at [facility] about the packet as well.
--- NOTE | 2023-08-09 12:14 | NUR ---
Director Of Personnel sent clinical updates to [facility]. ZAIN contacted Leyla with [facility] who reports to accept Patient for discharge and provided D2D and N2N numbers. SW provided these to Hospitalist and Nurse. Family picked up Patient for transportation this morning.
== END 2023-08-09 10:30 | disposition swing bed (61) | DRG 493 ==
LOC: COL.ER 17:05 → SURG 20:59
PROVIDERS: Emergency Medicine; Nurse Practitioner Family; Orthopaedic Surgery; Physician Assistant; ADMIT Internal Medicine
PROC: 0QSH06Z Reposition Left Tibia with Intramedullary Internal Fixation Device, Open Approach (ICD-10-PCS; principal; 2023-08-05 19:30)
DX: S82.202A Unspecified fracture of shaft of left tibia, initial encounter for closed fracture (principal); E87.1 Hypo-osmolality and hyponatremia; N17.9 Acute kidney failure, unspecified; G89.29 Other chronic pain; D72.829 Elevated white blood cell count, unspecified; I10 Essential (primary) hypertension; F41.9 Anxiety disorder, unspecified; Z72.0 Tobacco use; G47.00 Insomnia, unspecified
CPT/HCPCS: A4314; A9270; A9284; C1713; G0378; J0360; J0690; J1100; J1170; J1644; J2250; J2270; J2371; J2405; J2704; J3010; J7030; J7120